=== PATIENT | female | born 1965 | race Caucasian/White ===

== ENCOUNTER → 2021-08-29 | Outpatient (CLI) | payer BC ==
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
== END ==
LOC: SLEEP 14:56
PROVIDERS: ATTEND Internal Medicine
DX: G47.10 Hypersomnia, unspecified (principal); R06.83 Snoring; J45.909 Unspecified asthma, uncomplicated; F32.A Depression, unspecified; F41.0 Panic disorder [episodic paroxysmal anxiety]; K21.9 Gastro-esophageal reflux disease without esophagitis; E66.9 Obesity, unspecified; Z90.710 Acquired absence of both cervix and uterus; Z78.0 Asymptomatic menopausal state; Z68.30 Body mass index [BMI] 30.0-30.9, adult
CPT/HCPCS: 99202

== ENCOUNTER → 2021-11-05 | Outpatient (CLI) | payer BC ==
--- NOTE | 2021-11-05 15:31 | US ---
EXAMINATION TYPE: US kidneys/renal and bladder DATE OF EXAM: 11/05/2021 COMPARISON: NONE CLINICAL HISTORY: N39.0 Recurrent UTI. Recurrent UTI's EXAM MEASUREMENTS: Right Kidney: 9.5 x 4.1 x 4.2 cm Left Kidney: 9.5 x 4.7 x .5 cm Right Kidney: wnl Left Kidney: wnl Bladder: Limited by incomplete distention, pt unable to fully fill bladder due to UTI. Grossly within normal limits. Bilateral Jets seen: No IMPRESSION: No acute process.
== END | disposition home or self-care (01) ==
LOC: RADUSWWP 15:03
PROVIDERS: ATTEND Obstetrics & Gynecology
DX: N39.0 Urinary tract infection, site not specified (principal)
CPT/HCPCS: 76770

== ENCOUNTER → 2022-01-22 | Outpatient (CLI) | payer BC ==
--- NOTE | 2022-01-22 17:44 | P.PN ---
Subjective DATE: 01/22/2022 FOLLOW UP VISIT. Patient returned to follow-up visit to discuss results of sleep study and following plan. I discussed results of sleep study this patient in details. Sleep study showed mild obstructive sleep apnea-hypopnea syndrome. Patient continued to have symptoms of significant excessive daytime sleepiness even whi le she is on treatment with Adderall 60 mg a day which is highest dose. [place] Sleepiness Scale today is 19. Treatment of obstructive sleep apnea hypopnea syndrome might improved patient alertness during the day. Sleep study also showed that she has mild periodic limb movements, that also needs to be addressed to improve her sleep. Prescription will for CPAP was S[facility] to [facility] several months ago, but patient still did not get her CPAP unit. MEDICATIONS:1. Adderall 30 mg twice a day 2. Effexor 150 mg once a day 3. Abilify 5 mg once a day 4. Prilosec 20 mg once a day 5. Aspirin 325 mg once a day During physical exam: GENERAL: A pleasant patient without any distress. VITAL SIGNS: BP 116/79, HR 92, RR 16 , weight 179.2, temperature 97.1, oxygen saturation at room air 100% . HEENT: PERRLA, EOMI. NECK: Supple. No JVD. LUNGS: Clear to percussion and to auscultation. Good air exchange. No wheezing or rhonchi. HEART: S1, S2 regular. ABDOMEN: Soft and nontender. EXTREMITIES: No clubbing or cyanosis. DRIVE THRU ORDER TAKER: Awake, alert, and oriented x3. No focal deficit. Impressions: 1. Obstructive sleep apnea hypopnea syndrome in mild range. 2. Periodic limb movements mostly at the beginning, the night 15.3 times per hour.. 3. Significant excessive daytime sleepiness while patient is on treatment with Adderall 30 mg twice a day. Possibly additional diagnosis of narcolepsy.. 4. Asthma. 5. History of depression. 6. History of anxiety. 7. History of panic attacks. 8. Acid reflux. 9. Overweight borderline to obesity. Plan: 1. Patient should start treatment with CPAP as soon as possible. We will contact [facility].. 2. Sleep hygiene with regular time in bed for at least 8 hours. 3. Please check iron profile including ferritin level, low level of iron may increase the risk for periodic limb movements. 4. Precautions related to driving. No driving if feel any sleepiness. Patient is aware about civil and criminal liability for unsafe driving, promised to follow recommendations. 5. Follow up visit in several weeks after patient will be started on treatment with CPAP. If patient will continue to feels sleepiness while on treatment with CPAP we will proceed with multiple sleep latency test to confirm additional diagnosis of narcolepsy and possibly use additional medications for normalization of alertness. Thank you very much for allowing me to participate in the management of your patient. Saul Lezama MD, PhD, FAASM. Diplomat of [place] [employer], Sleep Medicine Board by [place] [employer] Ice Cream Machine Operator of [facility] [place]
== END ==
LOC: SLEEP 15:24
PROVIDERS: ATTEND Internal Medicine
DX: G47.33 Obstructive sleep apnea (adult) (pediatric) (principal); J45.909 Unspecified asthma, uncomplicated; F32.A Depression, unspecified; K21.9 Gastro-esophageal reflux disease without esophagitis; E66.3 Overweight; F41.0 Panic disorder [episodic paroxysmal anxiety]; F41.9 Anxiety disorder, unspecified; Z99.89 Dependence on other enabling machines and devices
CPT/HCPCS: 99212

== ENCOUNTER → 2022-04-16 | Outpatient (CLI) | payer BC ==
--- NOTE | 2022-04-16 17:51 | P.PN ---
Subjective DATE: 04/16/2022 FOLLOW UP VISIT. Patient returned to sleep center for follow-up visit to discuss results of sleep study and following plan. Patient has mild obstructive sleep apnea hypopnea syndrome had Pap titration night and following multiple sleep latency test. During CPAP night her respiration was on full control with low level of PAP pressure. Multiple sleep latency test confirmed extremely short pathological sleepiness with mean sleep latency only 1.6 minutes. Presently patient is on Adderall 30 mg twice a day, but continued to feel sleepiness during the day. . [place] sleepiness scale is significantly increased to 22 today. Very mild periodic limb movements also have been documented during the sleep study. MEDICATIONS:1. Adderall 30 mg twice a day 2. Effexor 150 mg once a day 3. Abilify 5 mg once a day 4. Prilosec 20 mg once a day 5. Aspirin 325 mg once a day During physical exam: GENERAL: A pleasant patient without any distress. VITAL SIGNS: BP 114/72, HR 104, RR 16, weight 181.8, temperature 97.3, oxygen saturation at room air 97%. HEENT: PERRLA, EOMI. NECK: Supple. No JVD. LUNGS: Clear to percussion and to auscultation. Good air exchange. No wheezing or rhonchi. HEART: S1, S2 regular. ABDOMEN: Soft and nontender. EXTREMITIES: No clubbing or cyanosis. STORE SPECIALIST: Awake, alert, and oriented x3. No focal deficit. Impressions: 1. Narcolepsy. Mean sleep latency by MSLT pathology clear short only 1.6 minutes. No sleep onset REM periods, but patient is on treatment with SSRIs which may decrease amount of REM sleep. 2. Very mild periodic limb movements during polysomnogram.. 3. Mild obstructive sleep apnea hypopnea syndrome on full control with low level of PAP pressure. Patient received CPAP unit, started to use it. 4. History of depression. 5. Anxiety. 6. []. acid reflux 7. [].overweight Plan: 1. Patient will continue treatment with[] Adderall 30 mg twice a day. Additionally patient will be started on modafinil 200 mg once a day in the [facility] 2. Sleep hygiene with regular time in bed for at least 8 hours. 3. Daytime naps permitted 4. Precautions related to driving. No driving if feel any sleepiness. Patient is aware about civil and criminal liability for unsafe driving, promised to follow recommendations. 5. patient should use CPAP equipment every night for the whole night. 6. Follow up visit in 2 months. Patient should bring her CPAP unit for follow- up visit. Thank you very much for allowing me to participate in the management of your patient. Saul Lezama MD, PhD, FAASM. Diplomat of [place] [employer] Medicine, Sleep Medicine Board by [place] [employer] User Experience Researcher of [facility] [place]
== END ==
LOC: SLEEP 16:59
PROVIDERS: ATTEND Internal Medicine
DX: G47.33 Obstructive sleep apnea (adult) (pediatric) (principal); G47.419 Narcolepsy without cataplexy; G47.61 Periodic limb movement disorder; K21.9 Gastro-esophageal reflux disease without esophagitis; E66.3 Overweight; F41.9 Anxiety disorder, unspecified; Z86.59 Personal history of other mental and behavioral disorders
CPT/HCPCS: 99212

== ENCOUNTER → 2024-02-11 | Outpatient (CLI) | payer BC ==
[2024-02-11 14:20] VITALS: BP 137/85; PULSE 101; RESP 16; TEMP 97.9
--- NOTE | 2024-02-11 15:41 | P.PROGSL ---
Subjective DATE: 02/11/2024 FOLLOW UP VISIT. Patient returned to sleep center for follow-up visit related to treatment of significant excessive daytime sleepiness. Patient has narcolepsy confirmed by multiple sleep latency test and mild obstructive sleep apnea hypopnea syndrome. Last time I saw patient in August 2022. Patient still did not use your CPAP eq uipment. She continued to take modafinil which I prescribed to her for treatment of narcolepsy. She is also on treatment with Adderall. Patient continued to feel sleepiness during the day.. [place] sleepiness scale is in very high range of 24. Patient described that she has a lot of difficulties at the present time in her life, sometimes even thinking about suicidal possibility. MEDICATIONS:1. Modafinil 300 mg in the morning 2. Adderall 30 mg twice a day 3. Wellbutrin 100 mg once a day 4. Pristiq once a day During physical exam: GENERAL: A pleasant patient without any distress. VITAL SIGNS: Please see below. HEENT: PERRLA, EOMI. NECK: Supple. No JVD. LUNGS: Clear to percussion and to auscultation. Good air exchange. No wheezing or rhonchi. HEART: S1, S2 regular. ABDOMEN: Soft and nontender. EXTREMITIES: No clubbing or cyanosis. OTTER TRAWLER BOATSWAIN: Awake, alert, and oriented x3. No focal deficit. Impressions: 1. Narcolepsy, confirmed by multiple sleep latency test with extremely short sleep latency 1.6 minutes. 2. Mild obstructive sleep apnea hypopnea syndrome, patient did not use your CPAP equipment recently. 3. Depression. 4. Anxiety. 5. Suicidal thinking. 6. Acid reflux. 7. Mild obesity BMI 30.3, patient lost 2 pounds comparing with previous visit. Plan: 1. Patient was transferred to emergency room for evaluation related to suicidal thinking. Patient needs psychiatric evaluation and treatment. 2. Sleep hygiene with regular time in bed for at least 8 hours. 3. Daytime naps permitted 4. Precautions related to driving. No driving if feel any sleepiness. Patient is aware about civil and criminal liability for unsafe driving, promised to follow recommendations. 5. Patient will continue treatment with modafinil 300 mg in the morning to prevent sleepiness 6. Patient again was strongly recommended to restart using CPAP and use it every night for the whole night. Thank you very much for allowing me to participate in the management of your patient. Saul Lezama MD, PhD, FAASM. Diplomat of [place] [employer], Sleep Medicine Board by [place] [employer] Shredding Machine Knife Changer of [facility] [place] cc: Nieves Wright PA-C Objective - Vital Signs Vital Signs: Vital Signs Temp 97.9 F 02/11/24 14:16 Pulse 101 H 02/11/24 14:16 Resp 16 02/11/24 14:16 BP 137/85 02/11/24 14:16 Pulse Ox 98 02/11/24 14:16 FiO2 Intake & Output 02/10/24 02/11/24 02/11/24 18:59 06:59 18:59 Weight 79.435 kg
== END ==
LOC: 3 N SLEEP 13:41
PROVIDERS: ATTEND Internal Medicine
CPT/HCPCS: 99212